=== PATIENT | male | born 1995 | race Caucasian/White ===

== ENCOUNTER 2021-01-20 13:24 | Emergency (ER) | payer OTHER ==
[~2021-01-20] VITALS: Ht 170.2 cm; Wt 86.2 kg
[2021-01-20 13:46] VITALS: BP 140/93; Ht 170.2 cm; Wt 86.2 kg
== END 2021-01-20 15:39 | disposition left against medical advice (07) ==
LOC: ED 13:24
DX: T18.5XXA Foreign body in anus and rectum, initial encounter (principal); W45.8XXA Other foreign body or object entering through skin, initial encounter; Y92.89 Other specified places as the place of occurrence of the external cause; Y93.89 Activity, other specified; Y99.8 Other external cause status